=== PATIENT | male | born 1955 | race Caucasian/White ===

== ENCOUNTER → 2019-06-02 | Day surgery (SDC) | payer BC ==
[2019-05-27 13:28] LABS: BASOPHILS # (AUTO) 0.1 (0.0-0.1); BASOPHILS % 0.7 % (0.0-1.0); EOSINOPHILS # (AUTO) 0.4 (0.0-0.4); EOSINOPHILS % 4.4 % (0.0-6.0); HEMATOCRIT 43.1 % (38.2-49.6); HEMOGLOBIN 14.6 g/dL (14.0-18.0); MEAN CORPUSCULAR HGB CONC 33.9 g/dL (31-35); MEAN CORPUSCULAR VOLUME 100.2 fL (81-99); MONOCYTES # (AUTO) 0.7 (0.2-0.8); MONOCYTES % 8.6 % (4.4-11.3); NEUTROPHILS # (AUTO) 5.1 (2.1-6.9); NEUTROPHILS % 61.5 % (38.7-80.0); PLATELET COUNT 204 x10e3/uL (140-360); RED CELL DISTRIBUTION WIDTH 13.3 % (11.7-14.4)
[2019-05-27 13:41] LABS: INR 0.94; PROTHROMBIN TIME 13.1 seconds (11.9-14.5)
--- NOTE | 2019-05-27 13:43 | Diagnostic Imaging Report ---
EXAMINATION: CHEST 2 VIEWS INDICATION: Preop. Foot surgery ^PREOP COMPARISON: 09/03/2016 FINDINGS: TUBES and LINES: None. LUNGS: Lungs are well inflated. Chronic appearing changes in the lungs. Previously described 4 to 5 mm pulmonary nodules better seen on CT scan 09/03/2016. There is no evidence of pneumonia or pulmonary edema. PLEURA: No pleural effusion or pneumothorax. HEART AND MEDIASTINUM: The cardiomediastinal silhouette is unremarkable. BONES AND SOFT TISSUES: No acute osseous lesion. Soft tissues are unremarkable. UPPER ABDOMEN: No free air under the diaphragm. IMPRESSION: Chronic appearing changes in the lungs. Previously described 4 to 5 mm pulmonary nodules better seen on CT scan 09/03/2016. Signed by: Dr. Mikhail Freed M.D. on 05/27/2019 1:39 PM
[2019-05-27 13:48] LABS: ALANINE AMINOTRANSFERASE 12 IU/L (0-55); ALBUMIN 4.1 g/dL (3.5-5.0); ALBUMIN/GLOBULIN RATIO 1.5 (0.8-2.0); ALKALINE PHOSPHATASE 75 IU/L (40-150); ANION GAP 12.2 mmol/L (8-16); BLOOD UREA NITROGEN 12 mg/dL (7-26); BUN/CREATININE RATIO 15 (6-25); CALCIUM 9.3 mg/dL (8.4-10.2); CARBON DIOXIDE 27 mmol/L (22-29); CHLORIDE 103 mmol/L (98-107); CREATININE, SERUM 0.78 mg/dL (0.72-1.25); EST GLOMERULAR FILTRATION RATE > 60 ML/MIN (60-); GLUCOSE 91 mg/dL (74-118); POTASSIUM 4.2 mmol/L (3.5-5.1); SODIUM 138 mmol/L (136-145)
[~2019-06-02] MED LIST: BUPIVACAINE HCL 0.5% 10ML MPF VIAL INJ ONE; CEFAZOLIN SOD 1 GM/NS 50ML 100 ML IV ONE; DEXAMETHASONE SOD PHOS INJ 4 MG/ML VIAL ONE; ELIQUIS PO; FENTANYL CITRATE/PF 100MCG/2 ML INJ ONE; FLEXERIL PO; KETOROLAC TROMETHAMINE 30 MG/ML VIAL ONE; LIDOCAINE HCL 2% LOCAL INJ 5 ML SDV VIAL INJ ONE; MIDAZOLAM HCL 2 MG/2 ML VIAL ONE; NAPROXEN250 MG PO; NEOMYCIN/POLYMYX/BACITR OINT 0.9 GM PKT ONE; ONDANSETRON HCL INJ 2MG/ML 2ML 2 MG/ML VIAL ONE; PROPOFOL IV EMULSION 10 MG/ML 20 ML VIAL ONE; SEVOFLURANE INHAL SOLN 250 ML PEN BTL ONE; ULTRAM 50MG50 MG PO; ULTRAM50 MG PO; VICODIN PO
--- OUTSIDE RECORDS SUMMARY | 2019-06-02 08:55 | XMS REPORT ---
[facility] [place] Address Unknown Phone Unavailable Care Team Providers Care Data Processing Operator Name Role Phone JESÚS RICHARDSON Unavailable Unavailable Problems This patient has no known problems. Allergies, Adverse Reactions, Alerts This patient has no known allergies or adverse reactions. Medications This patient has no known medications. Results Test Description Test Time Test Comments Text Results Atomic Results Result Comments CHEST 2 VIEWS 2019-05-27 13:37:00 [place] [address] Patient Name: OSIRIS GONZALES MR #: [id number] : 1955 Age/Sex: 64/M Req #: [id number] Adm Physician: Ordered by: JESÚS RICHARDSON DPM Report #: [id number] Location: OR Room/Bed: Procedure: [id number] DX/CHEST 2 VIEWS Exam Date: Exam Time: REPORT STATUS: Signed EXAMINATION: CHEST 2 VIEWS INDICATION: Preop. Foot surgery PREOP COMPARISON: 09/03/2016 FINDINGS: TUBES and LINES: None. LUNGS: Lungs are well inflated. Chronic appearing changes in the lungs. Previously described 4 to 5 mm pulmonary nodules better seen on CT scan 09/03/2016. There is no evidence of pneumonia or pulmonary edema. PLEURA: No pleural effusion or pneumothorax. HEART AND MEDIASTINUM: The cardiomediastinal silhouette is unremarkable. BONES AND SOFT TISSUES: No acute osseous lesion. Soft tissues are unremarkable. UPPER ABDOMEN: No free air under the diaphragm. IMPRESSION: Chronic appearing changes in the lungs. Previously described 4 to 5 mm pulmonary nodules better seen on CT scan 09/03/2016. Signed by: Dr. Mikhail Freed M.D. on 05/27/2019 1:39 PM Dictated By: MIKHAIL FREED MD, MD [id number] Transcribed By: SANJU on 05/27/19 1332 COPY TO: JESÚS RICHARDSON DPM
[2019-06-02 13:00] VITALS: BP 124/78
--- NOTE | 2019-06-02 13:32 | Operative Report ---
DATE OF PROCEDURE: 06/02/2019 SURGEON: Deborah Abreu DPM PREOPERATIVE DIAGNOSES: 1. Right plantar flex metatarsal 3rd. 2. Stage 1 pressure ulcer, right foot. POSTOPERATIVE DIAGNOSES: 1. Right plantar flex metatarsal 3rd. 2. Stage 1 pressure ulcer, right foot. PROCEDURE: 1. Nico osteotomy, right foot. 2. Application of human allograft to decrease adhesions and nerve entrapment. COMPLICATIONS: None. CONDITION: Stable. PROCEDURE IN DETAIL: Under mild sedation, the patient was brought to the operating room, placed on the operating table in supine position. Following IV sedation, anesthesia was obtained with general anesthetic. At this point, the right foot was scrubbed, prepped and draped in the usual aseptic manner. After pneumatic ankle tourniquet was inflated to 250 mmHg, the leg was lowered to the table. Attention was then directed to the dorsal aspect of the right foot, where a linear incision was made overlying the 3rd metatarsal. The incision was deepened via sharp and blunt dissection down to the level of the 3rd metatarsal. Once the metatarsal was isolated, linear capsulotomy was then performed. Nico osteotomy was then performed through and through. The head of the 1st metatarsal then went to a more dorsiflexor position in order to decrease the pressure of the plantar aspect creating the ulcer. It was then secured utilizing a screw. Following AO fixation, there was adequate compression and alignment noted clinically and with the use of intraoperative fluoroscopy. The human allograft was then inserted into the area. The area was then flushed with copious amount of normal sterile saline solution. The area was then closed in layers closing the deepest layer with 3-0 Vicryl, 4-0 Vicryl, and 4-0 nylon. Clean dressing was applied consisting of Adaptic, ointment, 4x4s, Kerlix, and an Phil bandage. Tourniquet was deflated. There was noted to be hyperemic response to all the digits of the foot. The patient will be discharged home when he meets criteria. He was given instructions to be nonweightbearing, to ice and elevate the foot while at rest, follow up with me in the office, and to call the office if any questions, concerns, or new problems arise. IRIS Goins/LAOKL /[id number]
== END | disposition home or self-care (01) ==
LOC: OR 08:54
PROVIDERS: ATTEND Podiatrist Foot & Ankle Surgery
DX: M21.272 Flexion deformity, left ankle and toes (principal); L89.891 Pressure ulcer of other site, stage 1; R06.02 Shortness of breath; Z72.0 Tobacco use; Z01.810 Encounter for preprocedural cardiovascular examination; Z01.812 Encounter for preprocedural laboratory examination; Z01.818 Encounter for other preprocedural examination; Z86.19 Personal history of other infectious and parasitic diseases
CPT/HCPCS: 28308; 36415; 71046; 76000; 80053; 85025; 85610; 85730; 93005; C1713; J0690; J1100; J1885; J2001; J2250; J2405; J2704; J3010; Q4150

== ENCOUNTER 2021-06-12 19:12 | Emergency (ER) | payer BC ==
[~2021-06-12] VITALS: Ht 182.9 cm; Wt 104.3 kg
[~2021-06-12 19:12] MED LIST changes: -BUPIVACAINE HCL 0.5% 10ML MPF VIAL INJ ONE; -CEFAZOLIN SOD 1 GM/NS 50ML 100 ML IV ONE; -DEXAMETHASONE SOD PHOS INJ 4 MG/ML VIAL ONE; -FENTANYL CITRATE/PF 100MCG/2 ML INJ ONE; -KETOROLAC TROMETHAMINE 30 MG/ML VIAL ONE; -LIDOCAINE HCL 2% LOCAL INJ 5 ML SDV VIAL INJ ONE; -MIDAZOLAM HCL 2 MG/2 ML VIAL ONE; -NEOMYCIN/POLYMYX/BACITR OINT 0.9 GM PKT ONE; -ONDANSETRON HCL INJ 2MG/ML 2ML 2 MG/ML VIAL ONE; -PROPOFOL IV EMULSION 10 MG/ML 20 ML VIAL ONE; -SEVOFLURANE INHAL SOLN 250 ML PEN BTL ONE
[2021-06-12] MEDS ORDERED: KETOROLAC TROMETHAMINE 30 MG/ML VIAL IV STA (20:25)
[2021-06-12] MEDS ORDERED: ONDANSETRON HCL INJ 2MG/ML 2ML 2 MG/ML VIAL IV STA (20:25)
[2021-06-12] MEDS ORDERED: FENTANYL CITRATE/PF 100MCG/2 ML INJ IV ONE (20:30)
[2021-06-12 20:55] LABS: BASOPHILS # (AUTO) 0.1 (0.0-0.1); BASOPHILS % 0.5 % (0.0-1.0); EOSINOPHILS # (AUTO) 0.5 (0.0-0.4); EOSINOPHILS % 4.7 % (0.0-6.0); HEMATOCRIT 40.7 % (38.2-49.6); HEMOGLOBIN 13.3 g/dL (14.0-18.0); LYMPHOCYTES # (AUTO) 2.5 (1.0-3.2); LYMPHOCYTES % 24.4 % (18.0-39.1); MEAN CORPUSCULAR HEMOGLOBIN 33.2 pg (28-32); MEAN CORPUSCULAR HGB CONC 32.7 g/dL (31-35); MEAN CORPUSCULAR VOLUME 101.5 fL (81-99); MONOCYTES # (AUTO) 0.8 (0.2-0.8); MONOCYTES % 8.1 % (4.4-11.3); NEUTROPHILS # (AUTO) 6.2 (2.1-6.9); NEUTROPHILS % 61.7 % (38.7-80.0); PLATELET COUNT 226 x10e3/uL (140-360); RED BLOOD COUNT 4.01 x10e6/uL (4.3-5.7); RED CELL DISTRIBUTION WIDTH 13.2 % (11.7-14.4)
[2021-06-12 20:58] LABS: CLARITY,URINE SL CLOUDY (CLEAR); COLOR,URINE YELLOW (YELLOW); KETONES,URINE NEGATIVE (NEGATIVE); LEUKOCYTE ESTERASE ,URINE NEGATIVE (NEGATIVE); NITRITE,URINE NEGATIVE (NEGATIVE); PROTEIN,URINE DIPSTICK NEGATIVE (NEGATIVE); URINE UROBILINOGEN 0.2 mg/dL (0.2 - 1)
[2021-06-12 21:09] LABS: BACTERIA,URINE FEW /HPF; MUCUS,URINE MODERATE (RARE)
[2021-06-12 21:14] LABS: ALBUMIN 3.9 g/dL (3.5-5.0); ALBUMIN/GLOBULIN RATIO 1.3 (0.8-2.0); ANION GAP 12.1 mmol/L (8-16); CALCIUM 8.7 mg/dL (8.4-10.2); CREATININE, SERUM 0.97 mg/dL (0.72-1.25); POTASSIUM 4.1 mmol/L (3.5-5.1)
[2021-06-12] MEDS ORDERED: LIDOCAINE 4% PATCH TP STA (21:39)
[2021-06-12] MEDS ORDERED: DEXAMETHASONE 4 MG TAB PO STA (21:39)
[2021-06-12] MEDS ORDERED: ACETAMINOPHEN 325 MG TAB PO ONE (21:45)
[2021-06-12] MEDS ORDERED: LIDOPATCH1 EACH TOP (22:39)
== END 2021-06-12 22:55 | disposition home or self-care (01) ==
LOC: ER 20:25
DX: M54.5 Low back pain (principal); R30.0 Dysuria; G89.29 Other chronic pain
CPT/HCPCS: 36415; 74176; 80053; 81001; 85025; 99284; J1885; J2405; J8540

== ENCOUNTER 2025-01-08 21:57 | Observation (INO) | payer BC ==
[~2025-01-08] VITALS: Ht 182.9 cm; Wt 99.8 kg
[~2025-01-08 21:57] MED LIST changes: +LIDOPATCH1 EACH TOP
[2025-01-08 22:39] VITALS: BP 134/84; PULSE 82; RESP 18; TEMP 97.9; O2SAT 97
[2025-01-08] MEDS ORDERED: HYDRALAZINE HCL 20 MG/ML VIAL IV PRN (23:15)
[2025-01-08] MEDS ORDERED: ONDANSETRON HCL INJ 2MG/ML 2ML 2 MG/ML VIAL IV PRN (23:15)
[2025-01-08] MEDS ORDERED: POLYETHYLENE GLYCOL 3350 17 GM PACK PO PRN (23:15)
[2025-01-08] MEDS ORDERED: LISINOPRIL5 MG PO (23:28)
[2025-01-08] MEDS ORDERED: VESICARE5 MG PO (23:28)
[2025-01-09] VITALS (7 sets, daily range): BP systolic 134–159; BP diastolic 73–84; PULSE 65–88; RESP 18–20; TEMP 97.9–98.1; O2SAT 95–98
[2025-01-09 06:33] LABS: BASOPHILS % 0.2 % (0.0-1.0); HEMATOCRIT 45.1 % (38.2-49.6); HEMOGLOBIN 15.1 g/dL (14.0-18.0); LYMPHOCYTES # (AUTO) 0.6 (1.0-3.2); LYMPHOCYTES % 9.7 % (18.0-39.1); MEAN CORPUSCULAR HEMOGLOBIN 33.6 pg (28-32); MEAN CORPUSCULAR HGB CONC 33.5 g/dL (31-35); MEAN CORPUSCULAR VOLUME 100.4 fL (81-99); MONOCYTES # (AUTO) 0.1 (0.2-0.8); NEUTROPHILS # (AUTO) 5.1 (2.1-6.9); NEUTROPHILS % 88.2 % (38.7-80.0); PLATELET COUNT 251 x10e3/uL (140-360); RED BLOOD COUNT 4.49 x10e6/uL (4.3-5.7); RED CELL DISTRIBUTION WIDTH 12.7 % (11.7-14.4); WHITE BLOOD COUNT 5.79 x10e3/uL (4.8-10.8)
[2025-01-09 07:13] LABS: ALBUMIN/GLOBULIN RATIO 1.4 (0.8-2.0); ANION GAP 14.5 mmol/L (8-16); BILIRUBIN,TOTAL 0.8 mg/dL (0.2-1.2); CALCIUM 8.9 mg/dL (8.4-10.2); CREATININE, SERUM 0.84 mg/dL (0.72-1.25); MAGNESIUM 2.3 MG/DL (1.3-2.1); POTASSIUM 4.5 mmol/L (3.5-5.1); TOTAL PROTEIN 6.9 g/dL (6.5-8.1)
[2025-01-09 07:26] LABS: THYROID STIMULATING HORMONE 1.12 uIU/mL (0.350-4.940)
[2025-01-09] MEDS: LISINOPRIL 2.5 MG TAB PO SCH (09:34)
[2025-01-09] MEDS: DOCUSATE SODIUM 100 MG CAP PO SCH (09:34)
[2025-01-09] MEDS: SOLIFENACIN SUCCINATE 5 MG TAB PO SCH (09:35)
[2025-01-09] MEDS: PREDNISONE 20 MG TAB PO SCH (09:35)
[2025-01-09] MEDS: AZITHROMYCIN 250 MG TAB PO SCH (09:35)
[2025-01-09] MEDS: ACETAMINOPHEN 325 MG TAB PO PRN (09:48)
[2025-01-09] MEDS ORDERED: ALBUTEROL/IPRATROPIUM 3 ML NEB NEB PRN (14:45)
[2025-01-09] MEDS: ENOXAPARIN SOD INJ 40 MG/0.4 ML SYR SC SCH (16:30)
[2025-01-09] MEDS ORDERED: DOXYCYCLINE HY100 MG PO (18:32)
[2025-01-09] MEDS ORDERED: PREDNISONE50 MG PO (18:32)
[2025-01-09] MEDS ORDERED: BUDESONIDE/FORMOTEROL 160/4.5MCG INHALER INH SCH (19:00)
== END 2025-01-09 19:56 | disposition home or self-care (01) ==
LOC: MED/SURG 22:42
PROVIDERS: ADMIT Internal Medicine; ATTEND Internal Medicine
DX: J44.1 Chronic obstructive pulmonary disease with (acute) exacerbation (principal); F17.210 Nicotine dependence, cigarettes, uncomplicated; R91.1 Solitary pulmonary nodule; Z86.19 Personal history of other infectious and parasitic diseases; I10 Essential (primary) hypertension
CPT/HCPCS: 36415; 71045; 71250; 80053; 83036; 83735; 83880; 84443; 84484 ×2; 85025; 94799; G0378 ×2; J0696; J1650; J7512

== ENCOUNTER → 2025-04-14 | Day surgery (SDC) | payer BC ==
[2025-04-12 08:41] LABS: BASOPHILS # (AUTO) 0.1 (0.0-0.1); BASOPHILS % 0.8 % (0.0-1.0); EOSINOPHILS # (AUTO) 0.4 (0.0-0.4); EOSINOPHILS % 5.6 % (0.0-6.0); HEMATOCRIT 41.9 % (38.2-49.6); HEMOGLOBIN 13.8 g/dL (14.0-18.0); LYMPHOCYTES # (AUTO) 1.7 (1.0-3.2); LYMPHOCYTES % 24.2 % (18.0-39.1); MEAN CORPUSCULAR HEMOGLOBIN 32.9 pg (28-32); MEAN CORPUSCULAR HGB CONC 32.9 g/dL (31-35); MONOCYTES # (AUTO) 0.7 (0.2-0.8); MONOCYTES % 9.4 % (4.4-11.3); NEUTROPHILS # (AUTO) 4.3 (2.1-6.9); NEUTROPHILS % 59.3 % (38.7-80.0); PLATELET COUNT 201 x10e3/uL (140-360); RED BLOOD COUNT 4.19 x10e6/uL (4.3-5.7); RED CELL DISTRIBUTION WIDTH 13.3 % (11.7-14.4)
[~2025-04-14] MED LIST changes: +ACETAMINOPHEN 1000 MG/100 ML 100 ML IV ONE; +DOXYCYCLINE HY100 MG PO; +EPHEDRINE SULFATE INJ 50 MG/ML VIAL ONE; +FENTANYL CITRATE/PF 100MCG/2 ML INJ ONE; +LISINOPRIL5 MG PO; +PREDNISONE50 MG PO; +PROPOFOL IV EMULSION 10 MG/ML 20 ML VIAL ONE; +VESICARE5 MG PO
[2025-04-14] MEDS: LACTATED RINGER'S 1,000 ML ONE (10:11)
[2025-04-14] MEDS: CEFAZOLIN SODIUM 2 GM ONE (10:11)
[2025-04-14 13:33] VITALS: TEMP 97.4
[2025-04-14 14:33] VITALS: BP 141/75; PULSE 66; RESP 18; O2SAT 94
== END | disposition home or self-care (01) ==
LOC: OR 09:52
PROVIDERS: ATTEND Podiatrist Foot & Ankle Surgery
DX: M21.271 Flexion deformity, right ankle and toes (principal); L97.519 Non-pressure chronic ulcer of other part of right foot with unspecified severity; I10 Essential (primary) hypertension; J44.9 Chronic obstructive pulmonary disease, unspecified; E66.01 Morbid (severe) obesity due to excess calories; F17.200 Nicotine dependence, unspecified, uncomplicated; Z01.810 Encounter for preprocedural cardiovascular examination; Z01.812 Encounter for preprocedural laboratory examination; Z79.899 Other long term (current) drug therapy; Z86.19 Personal history of other infectious and parasitic diseases
CPT/HCPCS: 28288 ×2; 36415; 76000; 85025; 93005; J0131; J2704; J3010; J7121

== ENCOUNTER 2025-07-07 15:00 | Outpatient (RCR) | payer BC ==
[~2025-07-07 15:00] MED LIST changes: -ACETAMINOPHEN 1000 MG/100 ML 100 ML IV ONE; -EPHEDRINE SULFATE INJ 50 MG/ML VIAL ONE; -FENTANYL CITRATE/PF 100MCG/2 ML INJ ONE; -PROPOFOL IV EMULSION 10 MG/ML 20 ML VIAL ONE
== END 2025-07-11 ==
LOC: PT 15:00
PROVIDERS: ATTEND Podiatrist Foot & Ankle Surgery
DX: Z51.89 Encounter for other specified aftercare (principal); L91.0 Hypertrophic scar

== ENCOUNTER 2025-07-29 17:00 | Outpatient (RCR) | payer BC | END 2025-08-10 | LOC: PT 17:00 | PROVIDERS: ATTEND Podiatrist Foot & Ankle Surgery | DX: L91.0 Hypertrophic scar (principal); Z47.89 Encounter for other orthopedic aftercare | CPT/HCPCS: 97110 ×6; 97140; G0283 ×2 ==